=== PATIENT | male | born 1980 | race Caucasian/White ===

== ENCOUNTER 2017-03-01 13:27 | Emergency (ER) | payer OTHER ==
[2017-03-01 13:36] VITALS: BP 149/88
[2017-03-01] MEDS ORDERED: ACETAMINOPHEN 500 MG TABLET PO ONE (14:07)
[2017-03-01 14:24] LABS: Hemoglobin 13.1 gm/dL (13.5-18.0); Mean Cell Volume 78.1 fl (78-100); Mean Corpuscular Hemoglobin 25.6 pg (27-31); Mean Corpuscular Hgb Conc 32.8 g/dl (32-36); Mean Platelet Volume 9.9 fl (6.0-9.5); Neutrophil # 9.9 K/mm3 (1.3-6.0); Neutrophil % 88.1 % (42-75.0); Platelet Count 243 K/mm3 (150-450); Red Blood Count 5.12 M/mm3 (4.7-6.0); Red Cell Distribution Width 13.8 % (11.5-14.0); White Blood Count 11.2 K/mm3 (4.0-10.5)
[2017-03-01 14:32] LABS: Albumin * 3.2 gm/dl (3.4-5.0); BUN/Creatinine Ratio 11.2 (9.0-21.6); Bilirubin, Total 0.4 mg/dL (0.0-1.1); Ca. Corrected For Albumin 8.8 mg/dL (8.4-10.2); Calcium * 8.5 mg/dL (7.9-10.9); Carbon Dioxide 25.1 mmol/L (24-32.6); Potassium 4.1 mmol/L (3.4-4.6); Total Protein 6.6 gm/dL (6.2-8.2)
--- NOTE | 2017-03-01 14:56 | ERNOTE ---
Time Seen by Provider: 03/01/17 14:34 Stated Complaint: HEADACHE DIZZY Presenting Symptoms:: cough Exam Limitations: no limitations Immunizations: IMMUNIZATION HX Immunizations Up to Date No History of Influenza Vaccine No Allergies/Adverse Reactions: Allergies No Known Allergies Allergy (Verified 03/01/17 13:36) Home Medications: HOME MEDICATIONS Insulin Glargine,Hum.rec.anlog [Lantus] 68 units SC BID 06/12/16 [Last Taken Unknown] metFORMIN HCL [Glucophage] 1,000 mg PO 06/12/16 [Last Taken Unknown] Albuterol Sulfate [Proair Hfa] 2 puff IH Q4H PRN #1 inhaler 03/01/17 [Last Taken Unknown] Penicillin V Potassium [Pen-Vee K] 250 mg PO QID 03/01/17 [Last Taken Unknown] - History of Present Ilness Narrative: Patient has had a cough for about a week. He had his wisdom teeth removed two days ago. This morning around 09:00 he coughed hard and then had blood in his mouth that he spit out, no bleeding since. Around 11:00 he took all his medications and shortly afterwards vomited everything up including some blood, no vomiting since , tolerated water here. He also woke up with a headache and dizziness, headache is better (3/10) since getting tylenol. Review of Systems - Review of Systems Constitutional: Absent: recent illness, fever, chills ENT: Absent: sore throat Respiratory: Present: cough. Absent: shortness of breath Cardiology: Absent: chest pain Gastrointestinal/Abdominal: Present: nausea, vomiting Genitourinary: Present: no symptoms reported Skin: Absent: rash Neurological: Present: headache. Absent: weakness, numbness - Patient's Past Medical History Patient History - Medical: Diabetes Type 2, Obesity Patient History - Cardiac/Respiratory: Hyperlipidemia Patient History - Cancer: No Hx of Cancer Patient History - Surgical Procedures: T & A, Other Patient History - Other: None - Social History Living Situations: home Abuse History: No History of abuse Psych History: No pertinent hx Smoking Status: Former smoker Alcohol Use: rarely Drug Use: none - Immunizations Immunizations Up to Date: No History of Influenza Vaccine: No Physical Exam - Physical Exam General Appearance: Present: wd/wn, alert, no apparent distress, obese Head Exam: Present: normal inspection Eye Exam: Normal inspection: bilateral, PERRL: bilateral Ears, Nose, Throat: Present: normal pharynx, other - wisdom teeth extraction site non bleeding, looking well Respiratory: Present: no respiratory distress, normal breath sounds, no accessory muscle use, lungs clear Cardiovascular/Chest: Present: regular rate, rhythm, no murmur Gastrointestinal/Abdominal: Present: normal bowel sounds, nontender, nondistended Neurological Exam: Present: alert, oriented, normal mood/affect Skin Exam: Present: normal color, warm/dry ED Progress - Results and Orders Patient's Lab Results:: I have reviewed the patient's lab results. - Vital Signs Patient's Vital Signs:: I have reviewed the patient's vital signs. Vital Signs: Vital Signs 03/01/17 03/01/17 13:27 13:59 Temperature 37.1 C 38.0 C H Pulse Rate 94 99 Respiratory 18 20 Rate Blood Pressure 149/88 O2 Sat by Pulse 95 95 Oximetry - X-Ray X-Ray #1 X-Ray: chest - prominent markings, no infiltrate or mass Interpretation: Reviewed by me - Progress/Reassessment Chief Complaint: Headache Progress Note-Subjective: 03/01/17 15:02 discussed results with patient and family 03/01/17 15:21 cough better after neb treatment Departure - Departure Clinical Impression: Bronchitis, Hemoptysis Disposition: Home self-care Condition: Good Instructions: Hemoptysis, [id number], Form - Excuse from Work, School, or Physical Activity, Acute Bronchitis Additional Instructions: take tylenol for fever and headache call your doctor for follow up Referrals: Javan Mccoy DO [Primary Care Provider] - Prescriptions: Albuterol Sulfate [Proair Hfa] 2 puff IH Q4H PRN #1 inhaler PRN Reason: Shortness Of Breath
[2017-03-01] MEDS ORDERED: ALBUTEROL SULFATE 2.5 MG/0.5 ML VIAL.NEB IH ONE (15:01)
[2017-03-01] MEDS ORDERED: ALBUTEROL SULFATE 2.5 MG/3 ML VIAL.NEB IH ONE (15:01)
== END 2017-03-01 15:30 | disposition home or self-care (01) ==
LOC: ER 13:27
DX: J40 Bronchitis, not specified as acute or chronic (principal); R04.2 Hemoptysis; Z87.891 Personal history of nicotine dependence